=== PATIENT | male | born 2000 | race Caucasian/White ===

== ENCOUNTER 2019-01-05 20:41 | Emergency (ER) | payer BC ==
[2019-01-05] MEDS ORDERED: Morphine 2 MG/ML Syringe ONE (20:59)
[2019-01-05] MEDS ORDERED: Morphine 2 MG/ML Syringe IM ONE (20:59)
--- NOTE | 2019-01-05 21:32 | EDM.PDOC ---
ED HPI GENERAL MEDICAL PROBLEM - General Chief Complaint: ENT Problem Stated Complaint: TOOTH KNOCKED OUT Time Seen by Provider: 01/05/19 20:54 - History of Present Illness INITIAL COMMENTS - FREE TEXT/NARRATIVE: HISTORY AND PHYSICAL: History of present illness: Patient 18-year-old male presents status post 1 midface trauma which he sustained multiple dental fractures and lacerations upper lip this occurred when he was knocked down at the swelling pole where he is a quahogger striking his face on the slide. There is no loss consciousness no neck pain no other tremor concerning subdivides immunizations Review of systems: As per history of present illness and below otherwise all systems reviewed and negative. Past medical history: As per history of present illness and as reviewed below otherwise noncontributory. Surgical history: As per history of present illness and as reviewed below otherwise noncontributory. Social history: No reported history of drug or alcohol abuse. Family history: As per history of present illness and as reviewed below otherwise noncontributory. Physical exam: HEENT: Patient has multiple dental fractures including his right and left central incisor chip off of his left lateral incisor and a posteriorly displaced right lateral incisor is also noted to have approximately a 1.5 cm moderate depth laceration of his upper inner lip normocephalic, pupils reactive , negative for conjunctival pallor or scleral icterus, mucous membranes moist, throat clear, neck supple, nontender, trachea midline. Lungs: Clear to auscultation, breath sounds equal bilaterally, chest nontender. Heart: S1S2, regular, negative for clicks, rubs, or JVD. Abdomen: Soft, nondistended, nontender. Negative for masses or hepatosplenomegaly. Negative for costovertebral tenderness. Pelvis: Stable nontender. Genitourinary: Deferred. Rectal: Deferred. Extremities: Atraumatic, negative for cords or calf pain. Neurovascular unremarkable. Neuro: Awake, alert, oriented. Cranial nerves II through XII unremarkable. Cerebellum unremarkable. Motor and sensory unremarkable throughout. Exam nonfocal. Diagnostics: None Therapeutics: Or feet sulfate 2 mg IM patient was anesthetized 1% lidocaine without epinephrine irrigated closed with 5-0 absorbable suture Impression: #11 midface trauma with multiple dental fractures #2 lip laceration #3 displaced right lateral incisor Definitive disposition and diagnosis as appropriate pending reevaluation and review of above. mouth area Pain Score (Numeric/FACES): 8 - Related Data Allergies Allergy/AdvReac Type Severity Reaction Status Date / Time No Known Allergies Allergy Verified 01/05/19 20:50 Home Meds: Home Meds . [No Known Home Meds] 01/05/19 [History] Past Medical History HEENT History: Reports: None Cardiovascular History: Reports: None Respiratory History: Reports: None Gastrointestinal History: Reports: None Genitourinary History: Reports: None Musculoskeletal History: Reports: None Neurological History: Reports: None Psychiatric History: Reports: None Endocrine/Metabolic History: Reports: None Hematologic History: Reports: None Immunologic History: Reports: None Oncologic (Cancer) History: Reports: None Dermatologic History: Reports: None - Infectious Disease History Infectious Disease History: Reports: None - Past Surgical History Head Surgeries/Procedures: Reports: None Social & Family History - Family History Family Medical History: Noncontributory - Caffeine Use Caffeine Use: Reports: Coffee - Recreational Drug Use Recreational Drug Use: No ED ROS GENERAL - Review of Systems Review Of Systems: ROS reveals no pertinent complaints other than HPI. ED EXAM, GENERAL - Physical Exam Exam: See Below (See dictation) Course - Vital Signs Last Recorded V/S: Last Vital Signs Temp 36.8 C 01/05/19 21:24 Pulse 73 01/05/19 21:24 Resp 17 01/05/19 21:24 BP 118/77 01/05/19 21:24 Pulse Ox 98 01/05/19 21:24 - Orders/Labs/Meds Meds: Medications Discontinued Medications Generic Name Dose Route Start Last Admin Trade Name Angel PRN Reason Stop Dose Admin Lidocaine HCl Confirm 01/05/19 20:56 01/05/19 21:23 Xylocaine-Mpf 1% Administered 01/05/19 20:57 Not Given Dose 5 mls @ as directed .ROUTE .STK-MED ONE Lidocaine HCl 5 ml 01/05/19 21:18 01/05/19 21:22 Xylocaine-Mpf 1% INJECT 01/05/19 21:19 5 ml ONETIME ONE Administration Morphine Sulfate 2 mg 01/05/19 20:59 01/05/19 21:20 Morphine IM 01/05/19 21:00 2 mg ONETIME ONE Administration Morphine Sulfate Confirm 01/05/19 20:59 01/05/19 21:23 Morphine Administered 01/05/19 21:00 Not Given Dose 2 mg .ROUTE .STK-MED ONE Departure - Departure Time of Disposition: 21:27 Disposition: Home, Self-Care 01 Condition: Good Clinical Impression: Facial trauma, Dental injury - Discharge Information Referrals: PCP,None [Primary Care Provider] - Additional Instructions: The following information is given to patients seen in the emergency department who are being discharged to home. This information is to outline your options for follow-up care. We provide all patients seen in our emergency department with a follow-up referral. The need for follow-up, as well as the timing and circumstances, are variable depending upon the specifics of your emergency department visit. If you don't have a primary care physician on staff, we will provide you with a referral. We always advise you to contact your personal physician following an emergency department visit to inform them of the circumstance of the visit and for follow-up with them and/or the need for any referrals to a consulting specialist. The emergency department will also refer you to a specialist when appropriate. This referral assures that you have the opportunity for followup care with a specialist. All of these measure are taken in an effort to provide you with optimal care, which includes your followup. Under all circumstances we always encourage you to contact your private physician who remains a resource for coordinating your care. When calling for followup care, please make the office aware that this follow-up is from your recent emergency room visit. If for any reason you are refused follow-up, please contact the [facility] emergency department at and asked to speak to the emergency department charge nurse. Keflex hydrocodone Zofran as prescribed clear liquids as directed follow-up dentist /oral surgery WILMER return as needed as discussed
== END 2019-01-05 21:47 | disposition home or self-care (01) ==
LOC: MW.ED 20:41
DX: S02.5XXA Fracture of tooth (traumatic), initial encounter for closed fracture (principal); S01.511A Laceration without foreign body of lip, initial encounter; W22.8XXA Striking against or struck by other objects, initial encounter
CPT/HCPCS: 12011; 96372; 99282; J2001; J2270